=== PATIENT | female | born 1995 | race African-American/Black ===

== ENCOUNTER 2017-02-28 11:31 | Inpatient (IN) ==
--- OUTSIDE RECORDS SUMMARY | 2017-02-28 13:07 | External Medical Summary | Referral Summary ---
:1995 Author Organization [facility] Care Address [address] [place] [address] Care Team Providers Name Role Phone Elena Luo Primary Care Physician Encounter VC Date(s): 01/22/16 - 01/22/16 [facility] [address] [place] [address] - us Discharge Diagnosis: Common cold virus Discharge Disposition: 01-Home or Self Care Attending Physician: Provider, Immediate Care Attending Physician: Justin Rausch MD Admitting Physician: Provider, Immediate Care Vital Signs Most recent to oldest [Reference Range]: 1 Temperature Oral [35.8-37.3 degC] 36.9 degC (01/22/16 5:45 PM) Peripheral Pulse Rate [60-100 bpm] 74 bpm (01/22/16 5:45 PM) Blood Pressure [90-140/60-90 mmHg] 142/69 mmHg *HI* (01/22/16 5:45 PM) SpO2 97 % (01/22/16 5:45 PM) Problem List Condition Effective Dates Status Health Status Informant At risk for falls(Confirmed) Active At risk for injury(Confirmed)1 Active Attention deficit hyperactivity Active disorder (disorder)(Confirmed) Knowledge deficit(Confirmed)2 Active Mental disorder(Confirmed)3 Active Mood disorder(Confirmed)4 Active Obesity(Confirmed) Active patient Seizure(Confirmed) Active patient 1Problem added automatically by system based on initiation of Risk for Injury Plan of [id number] added automatically by system based on initiation of Knowledge Deficit Plan of [id number] Allergies, Adverse Reactions, Alerts No Known Allergies Medications cetirizine 10 mg, Oral, Daily, 0 Refill(s) Start Date: 10/03/13 Status: OrderedFLUoxetine Oral, 0 Refill(s) Start Date: 01/22/16 Status: Orderedlevothyroxine Daily, 0 Refill(s) Start Date: 01/22/16 Status: Orderedmeloxicam 7.5 mg, Oral, qAM, 0 Refill(s) Start Date: 11/17/13 Status: OrderedmetFORMIN extended release 500 mg, Oral, BID, 0 Refill(s) Start Date: 11/17/13 Status: OrderedOcella 3 mg-0.03 mg oral tablet 1 tabs, Oral, Daily, 0 Refill(s) Start Date: 10/03/13 Status: Orderedomeprazole 40 mg, Oral, Daily, 0 Refill(s) Start Date: 11/17/13 Status: OrderedOXcarbazepine 600 mg, Oral, TID, 0 Refill(s) Start Date: 11/17/13 Status: Orderedpropranolol 40 mg, Oral, BID, 0 Refill(s) Start Date: 11/17/13 Status: OrderedSEROquel XR 50 mg, Oral, BID, 50mg with lunch, and 50mg at bedtime, 0 Refill(s) Start Date: 11/17/13 Status: OrderedSEROquel XR 100 mg, Oral, BID, 100mg with breakfast, and 100mg after school, 0 Refill(s) Start Date: 11/17/13 Status: Orderedstopped med - Fluticasone nasal spray stopped med - Fluticasone nasal spray, 0 Refill(s) Start Date: 11/17/13 Status: Orderedtopiramate 50 mg, Oral, BID, 0 Refill(s) Start Date: 11/17/13 Status: OrderedVitamin D3 0 Refill(s) Start Date: 01/22/16 Status: Ordered Results No data available for this section Immunizations Vaccine Date Refusal Reason diphtheria/pertussis, acel/tetanus ped 05/01/02 diphtheria/pertussis, acel/tetanus ped 02/02/00 diphtheria/pertussis, acel/tetanus ped 09/28/98 diphtheria/pertussis, acel/tetanus ped 04/07/98 diphtheria/pertussis, acel/tetanus ped 97 haemophilus b conjugate (HbOC) vaccine 05/01/01 haemophilus b conjugate (HbOC) vaccine 09/28/98 haemophilus b conjugate (HbOC) vaccine 04/07/98 haemophilus b conjugate (HbOC) vaccine 97 hepatitis A pediatric vaccine 09/28/10 hepatitis A pediatric vaccine 07/14/09 hepatitis B pediatric vaccine 09/28/98 hepatitis B pediatric vaccine 97 hepatitis B pediatric vaccine 97 human papillomavirus vaccine 09/28/10 measles/mumps/rubella virus vaccine 05/01/02 measles/mumps/rubella virus vaccine 09/28/98 meningococcal conjugate vaccine 07/14/09 poliovirus vaccine, inactivated 05/01/02 poliovirus vaccine, inactivated 09/28/98 poliovirus vaccine, inactivated 04/07/98 poliovirus vaccine, inactivated 97 tetanus-diphth toxoids (Td) adult/adol 07/14/09 varicella virus vaccine 07/14/09 varicella virus vaccine 09/28/98 Procedures Procedure Date Related Diagnosis Body Site Cholecystectomy Social History Social History Type Response Smoking Status Never smoker Assessment and Plan Extracted from: Title: Ambulatory Patient Education Author: Justin Rausch MD Date: Emergency Medicine Upper Respiratory Infection, Adult Most upper respiratory infections (URIs) are a viral infection of the air passages leading to the lungs. A URI affects the nose, throat, and upper air passages. The most common type of URI is nasopharyn gitis and is typically referred to as "the common cold." URIs run their course and usually go away on their own. Most of the time, a URI does not require medical attention, but sometimes a bacterial infection in the upper airways can follow a viral infection. This is called a secondary infection. Sinus and middle ear infections are common types of secondary upper respiratory infections. Bacterial pneumonia can also complicate a URI. A URI can worsen asthma and chronic obstructive pulmonary disease (COPD). Sometimes, these complications can require emergency medical care and may be life threatening. CAUSES Almost all URIs are caused by viruses. A virus is a type of germ and can spread from one person to another. RISKS FACTORS You may be at risk for a URI if: You smoke. You have chronic heart or lung disease. You have a weakened defense (immune) system. You are very young or very old. You have nasal allergies or asthma. You work in crowded or poorly ventilated areas. You work in health care facilities or schools. SIGNS AND SYMPTOMS Symptoms typically develop 23 days after you come in contact with a cold virus. Most viral URIs last 710 days. However, viral URIs from the influenza virus (flu virus) can last 1418 days and are typically more severe. Symptoms may include: Runny or stuffy (congested) nose. Sneezing. Cough. Sore throat. Headache. Fatigue. Fever. Loss of appetite. Pain in your forehead, behind your eyes, and over your cheekbones ( sinus pain). Muscle aches. DIAGNOSIS Your health care provider may diagnose a URI by: Physical exam. Tests to check that your symptoms are not due to another condition such as: Strep throat. Sinusitis. Pneumonia. Asthma. TREATMENT A URI goes away on its own with time. It cannot be cured with medicines, but medicines may be prescribed or recommended to relieve symptoms. Medicines may help: Reduce your fever. Reduce your cough. Relieve nasal congestion. HOME CARE INSTRUCTIONS Take medicines only as directed by your health care provider. Gargle warm saltwater or take cough drops to comfort your throat as directed by your health care provider. Use a warm mist humidifier or inhale steam from a shower to increase air moisture. This may make it easier to breathe. Drink enough fluid to keep your urine clear or pale yellow. Eat soups and other clear broths and maintain good nutrition. Rest as needed. Return to work when your temperature has returned to normal or as your health care provider advises. You may need to stay home longer to avoid infecting others. You can also use a face mask and c areful hand washing to prevent spread of the virus. Increase the usage of your inhaler if you have asthma. Do not use any tobacco products, including cigarettes, chewing tobacco, or electronic cigarettes. If you need help quitting, ask your health care provider. PREVENTION The best way to protect yourself from getting a cold is to practice good hygiene. Avoid oral or hand contact with people with cold symptoms. Wash your hands often if contact occurs. There is no clear evidence that vitamin C, vitamin E, echinacea, or exercise reduces the chance of developing a cold. However, it is always recommended to get plenty of rest, exercise, and practice good nutrition. SEEK MEDICAL CARE IF: You are getting worse rather than better. Your symptoms are not controlled by medicine. You have chills. You have worsening shortness of breath. You have brown or red mucus. You have yellow or brown nasal discharge. You have pain in your face, especially when you bend forward. You have a fever. You have swollen neck glands. You have pain while swallowing. You have white areas in the back of your throat. SEEK IMMEDIATE MEDICAL CARE IF: You have severe or persistent: Headache. Ear pain. Sinus pain. Chest pain. You have chronic lung disease and any of the following: Wheezing. Prolonged cough. Coughing up blood. A change in your usual mucus. You have a stiff neck. You have changes in your: Vision. Hearing. Thinking. Mood. MAKE SURE YOU: Understand these instructions. Will watch your condition. Will get help right away if you are not doing well or get worse. This information is not intended to replace advice given to you by your health care provider. Make sure you discuss any questions you have with your health care provider. Document Released: 08/08/2001 Document Revised: 06/29/2015 Document Reviewed: 05/20/2014 [employer] Patient Education 2016 [employer]. No follow up information was provided. Extracted from: Title: Cold [id number] Author: Justin Rausch MD Date: 01/22/16 Assessment/Plan 1.Common cold virus This certainly seems to be viral and I see no signs of any other serious complications. No signs of bacterial infection. Minimally symptomatic. Plan: Analgesics as needed. I discussed that we'll be a normal evolution of this withpossibly1-2 more days of sore throat. The cough will gradually worsened she may get more chest congestion and nasa ldrainage but this was just be part of the situation. No other antibiotics are needed. I discussed hand washing andsymptom control as well as minimizingrisk of other people. If she continues to have problems, return here or see PCP.
--- NOTE | 2017-02-28 13:27 | History & Physical Report ---
History of Present Illness Date: 02/28/17 Chief complaint: recurrent seizure HPI: "German" is a 21-year-old female who resides in [place] at [facility] which is a jail. She has a known history of complex partial seizure and pseudoseizures as well as cognitive and behavioral problems. She has been under the neurologic care of Dr. Fraser. It is reported that patient was seen in the [place] emergency department this morning following 2 witnessed seizures. She received her standing order of rectal Valium initially and was transported to [place] ER for further evaluation. It is reported that she also was seen in the emergency room yesterday at which time neurology, Dr. Fraser was notified. The initial seizure this morning is reported to of last 14 minutes followed by a 2 minute break, and then followed by another 2 minute seizure. Seizure was described as grand mal in nature, however, patient had no postictal phase. Given multiple recurrent seizures. Recent followed by neurologist, [facility] Hospital services were contacted and accepted patient for direct admission as an inpatient for further evaluation and treatment. German is seen on admission to [facility] medical floor. Nursing staff reports that patient had a probable seizure upon arrival. During transfer from EMS cart to bed. Nursing staff reports that patient closed her eyes and did not respond to verbal cues. She did not have any tremoring during this event. It lasted maximum of 2 minutes. Patient does not have any postictal phase. She is alert and oriented 3 on examination without any neurologic deficits. Upon reviewing old records, patient was seen by Dr. Fraser on 01/16/17. At that time he did start Lamictal 25 milligrams by mouth twice a day for 1 week with anticipation of tapering up to 100 milligrams by mouth twice a day. Review of Systems All systems PM: 10-point ROS was reviewed, no additional remarkable complaints except Review of systems: Denies ROS on examination Past Medical History Seizure disorder Pseudoseizures Cognitive and behavioral difficulties Hypertension Thyroid disease Anxiety, depression Surgical History: Cholecystectomy Family History Updates: Father-alcoholism. Brother-mental retardation - Social History Smoking status: Never smoker Substance use type: does not use Housing: other (jail- [facility]- [place]) Current residence: [facility] Social history: Additional history obtained from jail staff reporting patient had previously been in foster care. She was then moved to a jail, exact timeframe of this is unclear. She has no primary care provider in [place]. Neurologist-Dr. Fraser Medications Home Medications Medication Instructions Recorded Confirmed Type Cetirizine [Zyrtec] 1 tab PO DAILY 02/28/17 02/28/17 History Diazepam [Valium] 10 mg RECTALLY PRN PRN 02/28/17 02/28/17 History DiphenhydrAMINE [Benadryl] 1 cap PO Q4H PRN 02/28/17 02/28/17 History Ethinyl Estradiol/Drospirenone 1 each PO DAILY 02/28/17 02/28/17 History [Drospirenone-Ee 3-0.03 mg Tab] FLUoxetine [Prozac] 20 mg PO DAILY 02/28/17 02/28/17 History Lamotrigine [LaMICtal] 4 tab PO BID 02/28/17 02/28/17 History Levothyroxine Tab [Synthroid] 50 mcg PO ACB 02/28/17 02/28/17 History Metformin HCl [Metformin HCl ER] 500 mg PO DAILY 02/28/17 02/28/17 History OXcarbazepine [Trileptal] 600 mg PO TID 02/28/17 02/28/17 History Propranolol [Inderal] 20 mg PO BID 02/28/17 02/28/17 History Quetiapine XR [SEROquel XR] 300 mg PO DAILY 02/28/17 02/28/17 History Topiramate [Topiramate ER] 100 mg PO AM 02/28/17 02/28/17 History Topiramate [Topiramate ER] 200 mg PO PM 02/28/17 02/28/17 History Exam Vital Signs: Temperature 98.3 F 02/28/17 13:04 Pulse Rate 80 02/28/17 13:04 Respiratory Rate 24 02/28/17 13:04 Blood Pressure 123/68 02/28/17 13:04 Pulse Oximetry 99 02/28/17 13:04 - Constitutional Present: no acute distress, well nourished, well developed - Routine HEENT Exam Eye: Present: EOMI, PERRL, normal accommodation ENT: Present: mucous membranes moist, dentition normal - Routine Respiratory Exam Present: CTA bilaterally. Absent: wheezes - Routine Cardiovascular Exam Present: RRR, S1, S2, no murmur. Absent: murmur - Routine Abdominal Exam Present: soft, normoactive bowel sounds, non distended, non tender. Absent: tenderness - Routine Exam Comments: Currently on menstrual cycle - Routine Extremities Exam Present: no edema, pulses intact, normal capillary refill - Routine Back/Spine/Pelvis Exam Back/Spine: Present: full ROM - Routine Skin Exam Present: intact, dry, warm - Routine Neurological Exam Present: alert, oriented X3, CN II-XII intact, moving all extremities, vision grossly intact, hearing grossly intact, normal speech. Absent: sensory deficit , motor deficit - Routine Psychiatric Exam Present: cooperative Results - Labs CBC & Chem 7: 02/28/17 13:38 02/28/17 13:38 Assessment and Plan (1) Seizure disorder Current visit: Yes Status: Acute (2) Pseudoseizure Current visit: Yes Status: Acute (3) Mental and behavioral problems with learning Current visit: Yes Status: Acute Assessment and Plan: Impression Recurrent seizures Known history of seizure disorder Pseudoseizure Mental and behavioral problems with learning HTN Thyroid disease Depression and Anxiety Plan Admit patient as a inpatient under the care of Dr Reyes for recurrent seizure Place patient on seizure precautions. Ativan available as needed for acute recurrent seizure. Consult placed to Dr Fraser for further neurologic recommendations. Obtain CBC,BMP and TSH on admission for basic medical evaluation. Patient may have a regular diet Monitor blood pressures, currently on Inderal It is unclear why patient is on metformin. There is no past history, indicating diabetes. Possibly on it for PCOS. Monitor BGMs as needed. SCDs to bilateral lower ext for DVT ppx. Spoke with Dr Fraser who would like seizure activity video recorded if possible. This is discussed with charge nurse. Discuss further orders and plan of care with attending, Dr. Reyes DVT Prophylaxis: SCD's Resuscitation Status: Full Code - Physician Narrative Physician: Sandra Reyes MD Narrative: Date: 02/28/17 Time: 2034 Mo was seen earlier today at which time she described onset of seizures at age 14 after a fall with head injury/loss of consciousness. She reports flashing lights can trigger seizure and that she sometimes "feels weird"prior to seizures but does not describe other prodrome. She denied focal symptoms following seizure but often has a headache. Dr. Fraser indicated that EEGs been nondiagnostic in the past and that he hopes to have her evaluated by epileptologist at [facility] for consideration of video EEG due to atypical nature of seizures and lack of response to medications. When I spoke with him he recommended treatment with lorazepam for seizures lasting more than a couple of minutes. Patient was described as having a "seizure" on arrival which consisted of staring blankly and having stiff extremities for brief period without postictal phase. NAD, alert, soft-spoken Cranial nerves 3-12 grossly intact, sensation intact 4 extremities to touch, moves all extremities to command but generalized weakness evident Respirations nonlabored, regular cardiac rhythm Laboratory data reviewed-unremarkable; outside records reviewed as was Dr. Fraser's last office visit. Discussed with emergency room provider-Dr. Whitney. Patient admitted with recurrent seizure activity, failure of current therapy. Discussed with Dr. Fraser. Patient declining video of any seizures that may occur. Dr. Fraser will see in a.m. Hospital Course Summary Disclaimer: The visit summary below is not to be considered part of the above Progress Note. Hospital Course: 02/28/17 Impression Recurrent seizures Known history of seizure disorder Pseudoseizure Mental and behavioral problems with learning HTN Thyroid disease Depression and Anxiety Plan Admit patient as a inpatient under the care of Dr Reyes for recurrent seizure Place patient on seizure precautions. Ativan available as needed for acute recurrent seizure. Consult placed to Dr Fraser for further neurologic recommendations. Obtain CBC,BMP and TSH on admission for basic medical evaluation. Patient may have a regular diet Monitor blood pressures, currently on Inderal It is unclear why patient is on metformin. There is no past history, indicating diabetes. Possibly on it for PCOS. Monitor BGMs as needed. SCDs to bilateral lower ext for DVT ppx. Spoke with Dr Fraser who would like seizure activity video recorded if possible. This is discussed with charge nurse. Discuss further orders and plan of care with attending, Dr. Reyes
[2017-02-28 13:41] VITALS: BMI 37.5
[2017-02-28] MEDS: OXCARBAZEPINE 300 MG TABLET PO SCH ×2 (15:56→20:26)
[2017-02-28] MEDS ORDERED: TOPIRAMATE 100 MG TABLET PO SCH (20:00)
[2017-02-28] MEDS: LAMOTRIGINE 100 MG TABLET PO SCH (20:27)
[2017-02-28] MEDS: PROPRANOLOL 20 MG TABLET PO SCH (20:27)
[2017-03-01] MEDS ORDERED: LEVOTHYROXINE 50 MCG TABLET PO SCH (06:30)
[2017-03-01 07:59] VITALS: BP 132/70; PULSE 80; RESP 16; TEMP 97.9; O2SAT 98
[2017-03-01] MEDS ORDERED: ETHINYL ESTRADIOL PO SCH (09:00)
[2017-03-01] MEDS ORDERED: FLUoxetine 20 MG CAPSULE PO SCH (09:00)
[2017-03-01] MEDS ORDERED: CETIRIZINE 10 MG TABLET PO SCH (09:00)
[2017-03-01] MEDS ORDERED: TOPIRAMATE 100 MG TABLET PO SCH (09:00)
[2017-03-01] MEDS ORDERED: DROSPIRENONE PO SCH (09:00)
[2017-03-01] MEDS: PROPRANOLOL 20 MG TABLET PO SCH (09:31)
[2017-03-01] MEDS: LAMOTRIGINE 100 MG TABLET PO SCH (09:31)
[2017-03-01] MEDS: OXCARBAZEPINE 300 MG TABLET PO SCH (09:31)
--- NOTE | 2017-03-01 13:25 | Discharge Summary ---
Discharge Information Date of admission: 02/28/17 12:49 Anticipated date of discharge: 03/01/17 Attending Physician: Sandra Reyes MD Primary care physician: Patient does not have a PCP Consults: Dr. Hamilton-neurology consult - Discharge Diagnosis (1) Seizure disorder Status: Acute (2) Pseudoseizure Status: Acute (3) Mental and behavioral problems with learning Status: Acute Recurrent seizures Known history of seizure disorder Pseudoseizure Mental and behavioral problems with learning HTN Thyroid disease Depression and Anxiety - Procedures Procedures: None - Laboratory Labs: 02/28/17 13:38 02/28/17 13:38 - Microbiology None - Radiology Radiology: None - Pathology None History of Present Illness HPI: "German" is a 21-year-old female who resides in [place] at [facility] which is a skilled nursing. She has a known history of complex partial seizure and pseudoseizures as well as cognitive and behavioral problems. She has been under the neurologic care of Dr. Hamilton. It is reported that patient was seen in the [place] emergency department this morning following 2 witnessed seizures. She received her standing order of rectal Valium initially and was transported to [place] ER for further evaluation. It is reported that she also was seen in the emergency room yesterday at which time neurology, Dr. Hamilton was notified. The initial seizure this morning is reported to of last 14 minutes followed by a 2 minute break, and then followed by another 2 minute seizure. Seizure was described as grand mal in nature, however, patient had no postictal phase. Given multiple recurrent seizures. Recent followed by neurologist, [facility] Hospital services were contacted and accepted patient for direct admission as an inpatient for further evaluation and treatment. German is seen on admission to [facility] medical floor. Nursing staff reports that patient had a probable seizure upon arrival. During transfer from EMS cart to bed. Nursing staff reports that patient closed her eyes and did not respond to verbal cues. She did not have any tremoring during this event. It lasted maximum of 2 minutes. Patient does not have any postictal phase. She is alert and oriented 3 on examination without any neurologic deficits. Upon reviewing old records, patient was seen by Dr. Hamilton on 01/16/17. At that time he did start Lamictal 25 milligrams by mouth twice a day for 1 week with anticipation of tapering up to 100 milligrams by mouth twice a day. Objective Vital signs: Temperature 97.9 F 03/01/17 07:54 Pulse Rate 80 03/01/17 07:54 Respiratory Rate 16 03/01/17 07:54 Blood Pressure 132/70 03/01/17 07:54 Pulse Oximetry 98 03/01/17 07:54 Height/Weight/BMI: Height 1.63 m Weight 100 kg Body Mass Index 37.5 - Constitutional Present: no acute distress, well nourished, well developed - Routine HEENT Exam Eye: Present: EOMI ENT: Present: mucous membranes moist, dentition normal - Routine Respiratory Exam Present: CTA bilaterally. Absent: wheezes - Routine Cardiovascular Exam Present: RRR, S1, S2. Absent: murmur - Routine Abdominal Exam Present: soft, normoactive bowel sounds, non distended. Absent: tenderness - Routine Extremities Exam Present: full ROM, normal capillary refill - Routine Back/Spine/Pelvis Exam Back/Spine: Present: full ROM - Routine Skin Exam Present: intact, dry, warm - Routine Neurological Exam Present: alert, oriented X3, CN II-XII intact, normal reflexes, moving all extremities, vision grossly intact, hearing grossly intact - Routine Lymphatic Exam Lymphatic: Absent: adenopathy - Routine Psychiatric Exam Present: normal affect, cooperative Hospital Course This is a general summary of the patient's hospital course. For more details refer to the complete medical record. Hospital course: 02/28/17 Impression Recurrent seizures Known history of seizure disorder Pseudoseizure Mental and behavioral problems with learning HTN Thyroid disease Depression and Anxiety Plan Admit patient as a inpatient under the care of Dr Reyes for recurrent seizure Place patient on seizure precautions. Ativan available as needed for acute recurrent seizure. Consult placed to Dr Hamilton for further neurologic recommendations. Obtain CBC,BMP and TSH on admission for basic medical evaluation. Patient may have a regular diet Monitor blood pressures, currently on Inderal It is unclear why patient is on metformin. There is no past history, indicating diabetes. Possibly on it for PCOS. Monitor BGMs as needed. SCDs to bilateral lower ext for DVT ppx. Spoke with Dr Hamilton who would like seizure activity video recorded if possible. This is discussed with charge nurse. Discuss further orders and plan of care with attending, Dr. Reyes 03/01/17- Discharge Patient is seen and examined on day of discharge. She is alert, oriented and pleasant during examination without any complaints. She was seen and examined by neurologist, Dr. Hamilton this morning. He recommends tapering down Lamictal dose starting at 50 milligrams twice a day 1 week, then 50 milligrams daily 1 week, then stopping. He gave specific instructions for patient's skilled nursing to follow in regards to when patient needs acute evaluation in emergency room. He recommends. If seizures are less than 2 minutes in nature. Patient does not need any acute treatment. If seizures are greater than 2 minutes and with the presence of tonic-clonic like convulsions. Patient may have rectal Valium per when necessary order. If seizure is greater than 10 minutes with presence of convulsions and or does not respond to rectal Valium patient may be evaluated acutely in the emergency room. Instructed staff to be in contact with Dr. Hamilton's office regarding ongoing seizure concerns. Dr. Hamilton's staff is also setting up referral to Dr. Betts for further evaluation. Patient is discharged in stable condition with [facility] neha [place]. Time spent with patient: discharge greater than 30 minutes Discharge Plan - Discharge Disposition Discharge Date: 03/01/17 Disposition: Discharged Home, Self-Care *Condition: Stable Reason For Visit (Visit label in EMR): Recurrent Seizures - Discharge Medications *Discharge Medications: New Topiramate [Topamax] 100 mg PO DAILY tab Lamotrigine [LaMICtal] See Protocol PO UNK #30 tab Continue Topiramate [Topiramate ER] 100 mg PO AM Quetiapine XR [SEROquel XR] 300 mg PO DAILY Propranolol [Inderal] 20 mg PO BID OXcarbazepine [Trileptal] 600 mg PO TID Metformin HCl [Metformin HCl ER] 500 mg PO DAILY Levothyroxine Tab [Synthroid] 50 mcg PO ACB FLUoxetine [Prozac] 20 mg PO DAILY Cetirizine [Zyrtec] 1 tab PO DAILY Topiramate [Topiramate ER] 200 mg PO PM Ethinyl Estradiol/Drospirenone [Drospirenone-Ee 3-0.03 mg Tab] 1 each PO DAILY Diazepam [Valium] 10 mg RECTALLY PRN PRN PRN Reason: Seizures DiphenhydrAMINE [Benadryl] 1 cap PO Q4H PRN PRN Reason: Sleep Discontinued Lamotrigine [LaMICtal] 4 tab PO BID - Discharge Packet/Instructions *Diet: Regular diet *Activity: Activity as tolerated *Pain Management/Treatment: Tylenol as needed for pain control *Wound Care: None Additional Instructions: Seizure instructions as per Dr. Hamilton. Seizures lasting greater than 2 minutes with the presence of tonic-clonic convulsions. May use when necessary rectal Valium. Patient does not need to be evaluated in the emergency room. If seizures are less than 10 minutes, stop on their own, or stop following Valium. Patient may be left at home and observed to rest. Please contact Dr. Hamilton's office to report further seizures or problems. Dr. Hamilton's office is currently arranging follow-up referral to Dr. Betts. They will contact you with further details. Dr. Hamilton recommends tapering patient's Lamictal dosing- 50 milligrams twice a day for 1 week, then 50 milligrams daily for 1 week, then stop. *Expected Signs/Symptoms: improvement *Notify Physician if: Lung seizures. They do not resolve on their own or do not resolve following treatment with rectal Valium *During Business Hours Contact: Contact primary care provider or Dr. Hamilton's office *After Business Hours Contact: Page Dr. Hamilton or present to the emergency room *Pending Lab/Results: No Pending Lab - Referrals/Follow Up *Referrals/Follow Up: Therese Hamilton MD [Physician] - 1 Month (CALL AND SCHEDULE APPOINTMENT TO BE SEEN WITH DR. HAMILTON IN ONE MONTH. [phone]) - Patient Handouts Patient Handouts: Nonepileptic Seizures (DC) Physician Narrative - Narrative Physician: Sandra Reyes MD Attestation Narrative: Date: 03/01/17 Time: [id number] I have independently evaluated and examined this patient. I reviewed the chart, the patient's history, and the AUTOM[employer] EQUIPMENT ENGINEER TECHNICIAN/PA's documented findings as above. We discussed and formulated the assessment and plan as above with additions as below: Mo reports no concerns when seen this morning. She denied pain or nausea and reported her appetite is good. Case reviewed with Dr. Hamilton as described above. NAD, alert; respirations nonlabored, regular cardiac rhythm, benign abdomen. Stable for discharge. Non-epileptogenic seizures witnessed by this am. No acute interventions planned; to be titrated off lamictal as above. Dr. Hamilton coordinating follow-up with Dr. Betts at [facility].
--- NOTE | 2017-03-01 14:45 | Consultation ---
DATE OF CONSULTATION: 03/01/2017 REFERRING PHYSICIAN: Dr. Reyes PATIENT'S CHIEF COMPLAINT: Seizure. HISTORY OF PRESENT ILLNESS The patient is a 21-year-old female with history of intractable seizure-like activity previously diagnosed with nonepileptic seizure. She has had recurrent seizure problem for the past 2 months. She has been going to the emergency department on a weekly basis due to prolonged convulsive seizure-like events. There has not been any report of tongue biting, incontinence or severe confusion after those spells. The patient told me that she is not very comfortable in the place where she is living right now. She has difficulty sleeping in her bed and she has had sleep deprivation problem. Her anxiety has been worse than before. The patient was started on Lamictal at her last office visit and this has not helped with seizure or mood problem. Her seizures have been described as episodes of increased body tone and arm extension. Eyes will be rolling back in the head with arching of the back. This tends to last from 2 minutes up to 10 minutes with no significant postictal confusion. The patient had her last seizure yesterday. The patient is feeling better this morning. Her lab work has been unremarkable. She also has some normal vital signs. On physical examination the patient was awake, alert, oriented x 3. Pupils were round, reactive and equal. Extraocular muscles were intact. Visual field was full. Speech was fluent. Motor was 5/5. Sensory was normal for light touch and pinprick. Deep tendon reflexes were 2/4. Plantar reflexes were in flexion bilaterally. Coordination for [id number] was borderline bilaterally. ASSESSMENT AND PLAN 1. Recurrent convulsive seizure most likely associated with nonepileptic seizure problem. I was able to suggest to the patient to have a seizure using my tuning fork and I was able to stop it using the tuning fork too. This is highly suspicious for nonepileptic seizures. The patient was supposed to see Dr. Betts at [facility] for EEG video monitoring evaluation. This has not been done yet and needs to be scheduled. The patient did not respond well to Lamictal for seizure or mood problems and this can be titrated down slowly to 50 mg p.o. b.i.d. for a week, then 50 mg p.o. q.d. for a week, then stop. 2. When the patient is having a seizure at her half-way, she needs to be monitored closely. The staff should talk to the patient during the seizure to get her out of her seizure if possible. If the convulsions last more than 2 minutes, then she can be given diazepam per rectum. If her convulsions last more than 10 minutes after that, then EMS can be called and the patient can be taken to the emergency department. 3. Arrange for EEG video monitoring at the [facility] when possible. 4. The patient can continue on oxcarbazepine 600 mg p.o. t.i.d. for seizure and mood disorder until her video monitoring is done. She should also continue on the Topiramate 300 mg a day for headache prevention and seizure prevention until the EEG video monitoring is done. LAURENCE
== END 2017-03-01 14:25 | disposition home or self-care (01) | DRG 880 ==
LOC: MED 12:49
PROVIDERS: ADMIT Internal Medicine; ATTEND Internal Medicine